=== PATIENT | female | born 1945 | race Two or more races ===

== ENCOUNTER 2018-11-29 12:18 | Inpatient (IN) | payer SELFPAY ==
[~2018-11-29] VITALS: Ht 154.9 cm; Wt 76.5 kg
[2018-11-29] MEDS ORDERED: ASPirin 81 mg TAB PO ONE (13:00)
[2018-11-29] MEDS ORDERED: cloNIDine HCL 0.1 MG TAB PO ONE (13:15)
[2018-11-29 14:06] LABS: Hemoglobin 12.9 g/dL (12.2-16.2); Lymphocytes # (auto) 1.7 uL; Monocytes # (auto) 0.3 uL; Nucleated Red Blood Cells % 0.1 %; White Blood Cell 5.9 10^3/uL (4.4-10.8)
[2018-11-29 14:08] LABS: Basophils # (auto) 0.1 uL; Basophils % (auto) 0.9 % (0.0-2.0); Eosinophils # (auto) 0.2 uL; Eosinophils % (auto) 2.7 % (0.0-7.0); Hematocrit 38.4 % (36.0-46.0); Mean Corpuscular Hemoglobin 26.4 pg (28.0-32.0); Mean Corpuscular Hgb Conc. 33.6 g/dL (32.0-36.0); Mean Corpuscular Volume 78.7 fL (80.0-100.0); Monocytes % (auto) 5.9 % (0.0-12.0); Neutrophils # (auto) 3.6 uL; Neutrophils % (auto) 61.5 % (37.0-80.0); Platelet Count (auto) 231 10^3/uL (140-450); Red Blood Cells 4.88 10^6/uL (4.0-5.20); Red Cell Distribution Width 16.1 % (11.8-14.3)
[2018-11-29 14:21] LABS: INR < 0.93 (0.9-1.15); Partial Thromboplastin Time 28.8 sec (23.64-32.05); Potassium 3.5 mmol/L (3.5-5.1)
[2018-11-29 14:25] LABS: Albumin 3.9 g/dL (3.4-5.0); BUN/Creatinine Ratio 15.3; Calcium 8.9 mg/dL (8.5-10.1); Magnesium 2.3 mg/dL (1.6-2.6)
[2018-11-29 14:40] LABS: Bilirubin, Total 0.3 mg/dL (0.2-1.0); Total Protein 7.8 g/dL (6.4-8.2)
[2018-11-29] MEDS ORDERED: DEXTROSE (50%) 50ML SYRG IV PRN (18:45)
[2018-11-29] MEDS ORDERED: NITROGLYCERIN 0.4 MG SL TAB SL PRN (18:45)
[2018-11-29] MEDS ORDERED: ALBUTEROL SULF 2.5 MG/0.5ML(0.5%) NEB SOLN NEB PRN (18:45)
[2018-11-29] MEDS ORDERED: PROMETHAZINE HCL 25 MG/ML 1ML IV PRN (18:45)
[2018-11-29] MEDS ORDERED: LACTULOSE 20Gm/30ML SOLN PO PRN (18:45)
[2018-11-29] MEDS ORDERED: MORPHINE SULF INJ 2 MG/ML SYRINGE 1ML IV PRN (18:45)
--- NOTE | 2018-11-29 20:37 | NUR ---
Respiratory note: ASSESSED PT FOR PRN MED NEB TX. PT IS CURRENTLY ON ROOM AIR: HR 81, RR 18, SPO2 94%. PT SHOWS NO S/S OF SOB OR RESPIRATORY DISTRESS. MED NEB TX NOT INDICATED AT THIS TIME. INFORMED PT IF SOB TO CONTACT RESPIRATORY FOR BREATHING TX. WILL CONTINUE TO MONITOR.
[2018-11-29] MEDS: SODIUM CHLORIDE 0.9% 1,000 ML IV SCH (20:48)
[2018-11-29] MEDS ORDERED: cloNIDine HCL 0.1 MG TAB ONE (21:59)
[2018-11-29] MEDS ORDERED: ATORVASTATIN 20 MG TAB PO SCH (22:00)
[2018-11-29] MEDS: ACCU-CHEK COMFORT CURVE STRIP VI SCH (22:00)
--- NOTE | 2018-11-29 22:05 | NUR ---
Telemetry admit from ER KAMLA ORNELAS admitted to Telemetry unit after SBAR received. Patient oriented to BRANDON COOMBS, RN primary RN, unit, room, bed, and unit policies regarding patient care and visiting hours. Patient now on continuous telemetry monitoring, tele box # 79 and telemetry reading on arrival to unit is Sinus rhythm at 75BPM, IV to right hand 20G running NS at 75ml/hr. Patient placed on bedside oxygen, weighed by bedscale and encouraged to call if they need something. All questions and concerns addressed, patient verbalized understanding. Note: Patient is alert and oriented,anguillan speaking only. akash Pringle aid in interpretation process. Patient has no distress noted, saturating at 94% on room air and denies pain. Blood sugar upon arrival is 158mg/dl covered with 2 units of regular insulin. Bed placed in lowest position, bed alarm turned on and call light within reach. Bedside commode provided per patient request.
[2018-11-29 22:54] VITALS: BP 162/99
[2018-11-29] MEDS: METOPROLOL TARTRATE 25 MG TAB PO SCH (23:54)
[2018-11-29] MEDS: InsuLIN REG 1unit/0.01ml Soln (100units/ml) SC SCH (23:56)
[2018-11-30] VITALS (10 sets, daily range): BP systolic 127–192; BP diastolic 60–101
[2018-11-30] MEDS ORDERED: NORPTMEDS (02:40)
[2018-11-30] MEDS: traMADol HCL 50 MG TAB PO PRN ×2 (04:20→17:04)
--- NOTE | 2018-11-30 04:20 | NUR ---
ROUNDS PATIENT COMPLAINS OF PAIN TO RIGHT BACK AND SHOULDER OF 5/10. GIVEN TRAMADOL. WILL MONITOR
--- NOTE | 2018-11-30 06:00 | NUR ---
EKG DONE ORDERED.
[2018-11-30 06:15] LABS: Cholesterol 213 mg/dL (< 200); HDL Cholesterol 35 mg/dL (40-59); Triglycerides 402 mg/dL (< 150)
[2018-11-30] MEDS: ACCU-CHEK COMFORT CURVE STRIP VI SCH ×4 (06:35→21:17)
[2018-11-30] MEDS: InsuLIN REG 1unit/0.01ml Soln (100units/ml) SC SCH ×4 (06:35→21:17)
--- NOTE | 2018-11-30 08:00 | NUR ---
Received pt resting sitting on the side of the bed, call light with in reach, no pain or distress noted or reported, will continue to monitor pt.
--- NOTE | 2018-11-30 08:37 | NUR ---
PT. ASSESSED FOR PRN. MN. TX., NO RESP. DISTRESS OR SOB NOTED. PT. IS SITTING UP AT BEDSIDE EATING BREAKFAST. PT. STATES HER BREATHING IS GOOD TODAY. BS. ARE CLEAR, HR 73,RR 18, SP02 94% ON RA. PRN. NO GIVEN AT THIS TIME, NOT INDICATED. PT. INSTRUCTED TO CALL IF NEEDED.
[2018-11-30] MEDS: SODIUM CHLORIDE 0.9% 1,000 ML IV SCH ×2 (09:09→21:15)
[2018-11-30] MEDS ORDERED: ENALAPRIL MALEATE 10 MG TAB PO SCH (10:00)
[2018-11-30] MEDS: PANTOPRAZOLE 40 MG TAB PO SCH (10:24)
[2018-11-30] MEDS: ASPirin 81 mg TAB PO SCH (10:25)
[2018-11-30] MEDS: METOPROLOL TARTRATE 25 MG TAB PO SCH ×2 (10:25→21:14)
[2018-11-30] MEDS: ENOXAPARIN SOD 40 MG/0.4 ML SYRINGE SC SCH (10:27)
[2018-11-30] MEDS: NITROGLYCERIN 0.2MG/HR TOPICAL PATCH TD SCH (10:27)
--- NOTE | 2018-11-30 16:50 | NUR ---
Dr. Thompson at bed side to see pt, doctor inform of pt having anxiety and pt requesting for anxiety medication.
[2018-11-30] MEDS: LORazepam 0.5 MG TAB PO PRN (17:23)
--- NOTE | 2018-11-30 19:00 | NUR ---
PT ASSESSED FOR PRN BREATHING TX. TX NOT INDICATED @ THIS TIME. NO SOB OR DISTRESS NOTED. SPO2 94% ON ROOM AIR, HR 68, RR 18, DIMINISHED BS. PT AWARE TO PAGE FOR RT IF TX IS NEEDED.
--- NOTE | 2018-11-30 19:10 | NUR ---
Opening Shift Note Received report from Stefania Assumed care of patient, awake and alert. No S/S of distress/SOB or pain. Family at bedside. Instructed on POC and to call for assist PRN, will continue to monitor for changes Q1hr and PRN. Bed placed in lowest position, bed alarm turned on, and call light within reach.
[2018-11-30] MEDS: ACETAMINOPHEN 500 MG TAB PO PRN (20:24)
--- NOTE | 2018-11-30 20:24 | NUR ---
Tylenol given for Headache 08/04. Will monitor.
[2018-11-30 20:52] LABS: Alcohol, Urine < 3.0 mg/dL (0-5); Amphetamine Screen, Urine NEGATIVE (NEGATIVE); Barbiturate Scree,Urine NEGATIVE (NEGATIVE); Benzodiazephine Screen, Urine NEGATIVE (NEGATIVE); Cannabinoid Screen, Urine NEGATIVE (NEGATIVE); Cocaine Screen, Urine NEGATIVE (NEGATIVE); Opiate Scree,Urine NEGATIVE (NEGATIVE); Phencyclidine Screen, Urine NEGATIVE (NEGATIVE)
[2018-11-30] MEDS: ATORVASTATIN 20 MG TAB PO SCH (21:13)
--- NOTE | 2018-11-30 22:00 | NUR ---
PT BP is 192/89 Metoprolol given as ordered. PT is resting in bed no distress noted, PT states Headache is gone. Will monitor.
[2018-11-30] MEDS: cloNIDine HCL 0.1 MG TAB PO PRN (23:27)
--- NOTE | 2018-11-30 23:27 | NUR ---
BP Check is 167/72, PT is resting in bed with eyes closed no distress noted and PT denies pain. Catapres given as ordered will monitor
[2018-12-01] MEDS: hydrALAZINE HCL 20 MG/ML VL IV PRN (02:39)
--- NOTE | 2018-12-01 02:39 | NUR ---
Hydralazine given for BP of 179/97. PT is resting in bed awake and alert, distress noted and denies pain/headache. Will monitor.
--- NOTE | 2018-12-01 03:00 | NUR ---
IV insertion IV access obtained, via clean sterile technique by inserting 20 gauge catheter at the left wrist after first attempt. IV secured properly. No trauma to site. Patient tolerated procedure well.
--- NOTE | 2018-12-01 03:15 | NUR ---
PT seemed anxious regarding additional IV insertion and states "you took a lot of blood from my vein". Educated PT that additional IV was placed for stress test and no blood was drawn. PT then started to complain of pain in Head and back of neck and looking more anxious looking and going through her purse.
[2018-12-01] MEDS: LORazepam 0.5 MG TAB PO PRN (03:44)
[2018-12-01] MEDS: traMADol HCL 50 MG TAB PO PRN ×2 (03:44→20:06)
--- NOTE | 2018-12-01 03:44 | NUR ---
Tramadol given for pain and Ativan given for anxiety as ordered. PT adjusted up in bed, repositioned pillows and covered PT with blankets. Instructed patient to get some rest and relax and to call if she needs something. Call light within reach, bed alarm on and bed in lowest position.
--- NOTE | 2018-12-01 04:53 | NUR ---
Rounds: PT is resting in eyes closed no distress noted will continue to monitor.
[2018-12-01] MEDS: ACCU-CHEK COMFORT CURVE STRIP VI SCH ×4 (07:00→21:22)
[2018-12-01] MEDS: InsuLIN REG 1unit/0.01ml Soln (100units/ml) SC SCH ×4 (07:00→21:22)
--- NOTE | 2018-12-01 07:15 | NUR ---
Opening Shift Note Assumed care of patient, awake and alert. No S/S of distress/SOB or pain. Instructed on POC and to call for assist PRN, patient call light within reach and bed in lowest position. Will continue to monitor for changes Q1hr and PRN.
--- NOTE | 2018-12-01 07:34 | NUR ---
PATIENT'S BLOOD PRESSURE IS 156/90, PULSE IS 79
[2018-12-01 08:00] VITALS: BP 158/96
[2018-12-01] MEDS ORDERED: ADENOSINE 69 MG in GIVE UN-DILUTED 0 ML IV STA (08:57)
[2018-12-01 09:00] VITALS: BP 187/90
[2018-12-01] MEDS ORDERED: ENALAPRIL MALEATE 10 MG TAB PO SCH (10:00)
[2018-12-01] MEDS: SODIUM CHLORIDE 0.9% 1,000 ML IV SCH ×3 (10:35→23:55)
--- NOTE | 2018-12-01 10:45 | NUR ---
Patient returned to room from procedure
[2018-12-01] MEDS: METOPROLOL TARTRATE 25 MG TAB PO SCH ×2 (11:23→21:24)
[2018-12-01] MEDS: ASPirin 81 mg TAB PO SCH (11:23)
[2018-12-01] MEDS: PANTOPRAZOLE 40 MG TAB PO SCH (11:24)
[2018-12-01] MEDS: ENOXAPARIN SOD 40 MG/0.4 ML SYRINGE SC SCH (11:26)
--- NOTE | 2018-12-01 11:43 | NUR ---
Dr. Seth bedside with patient and patients family member. awaiting test results.
[2018-12-01] MEDS: NITROGLYCERIN 0.2MG/HR TOPICAL PATCH TD SCH (11:51)
[2018-12-01 13:00] VITALS: BP 158/96
--- NOTE | 2018-12-01 14:24 | NUR ---
Respiratory note: PT ASSESSED FOR MED NEB TX, NO SOB NOTED. POX 96% ON ROOM AIR HR 70, RR13 BS CLEAR THROUGH OUT. TX NOT INDICATED AT THIS TIME.
--- NOTE | 2018-12-01 16:10 | NUR ---
Called and spoke to Sarahi, cardio [employer] as per Dr. Seth's request to inquire on the stress test results, as per Sarahi she will talk a cancer program consultant to read the stress test and will call back with results.
[2018-12-01 16:43] VITALS: BP 159/81
--- NOTE | 2018-12-01 17:25 | NUR ---
Received a call back from Sarahi cardio [employer] to report that the stress test read apical lateral changes and ischemic changes and that pt will need a heart cath for Tuesday. Will inform results to Dr. Seth.
--- NOTE | 2018-12-01 19:29 | NUR ---
Respiratory note: ASSESSED PT FOR PRN MED NEB TX. PT IS CURRENTLY ON ROOM AIR: HR 68, RR 16, SPO2 96%. PT SHOWS NO S/S OF SOB OR RESPIRATORY DISTRESS. MED NEB TX NOT INDICATED AT THIS TIME. WILL CONTINUE TO MONITOR.
--- NOTE | 2018-12-01 19:30 | NUR ---
Opening Shift Note Received report from stoney Aguiar RN. Assumed care of patient, awake and alert. Family at bedside. No S/S of distress/SOB, but complains of pain to head and back of neck 5/10. Will give pain medication as ordered. Instructed on POC and to call for assist PRN, will continue to monitor for changes Q1hr and PRN.
[2018-12-01 20:00] VITALS: BP 193/93
--- NOTE | 2018-12-01 21:00 | NUR ---
URINE SPECIMEN SENT TO LAB.
[2018-12-01] MEDS: ATORVASTATIN 20 MG TAB PO SCH (21:24)
[2018-12-01 21:42] VITALS: BP 193/93
[2018-12-01 21:46] LABS: Urine WBC None Seen /hpf (0 - 5)
[2018-12-01 21:56] LABS: Urine Bacteria NONE SEEN /hpf (None Seen); Urine Blood 1+ /uL (Negative)
[2018-12-01] MEDS: cloNIDine HCL 0.1 MG TAB PO PRN (22:44)
[2018-12-02] MEDS: traMADol HCL 50 MG TAB PO PRN ×2 (04:24→21:01)
[2018-12-02] MEDS: LORazepam 0.5 MG TAB PO PRN (04:25)
[2018-12-02 04:31] VITALS: BP 168/89
[2018-12-02 05:47] LABS: Basophils # (auto) 0 uL; Eosinophils # (auto) 0.1 uL; Hemoglobin 12.3 g/dL (12.2-16.2); Monocytes # (auto) 0.4 uL; Red Cell Distribution Width 15.7 % (11.8-14.3); White Blood Cell 7.8 10^3/uL (4.4-10.8)
[2018-12-02 05:51] LABS: Basophils % (auto) 0.4 % (0.0-2.0); Eosinophils % (auto) 1.8 % (0.0-7.0); Hematocrit 36.1 % (36.0-46.0); Lymphocytes % (auto) 25.9 % (10.0-50.0); Mean Corpuscular Volume 79.2 fL (80.0-100.0); Monocytes % (auto) 5.6 % (0.0-12.0); Neutrophils # (auto) 5.2 uL; Neutrophils % (auto) 66.3 % (37.0-80.0); Platelet Count (auto) 214 10^3/uL (140-450); Red Blood Cells 4.56 10^6/uL (4.0-5.20)
[2018-12-02 06:06] LABS: Potassium 3.5 mmol/L (3.5-5.1)
[2018-12-02 06:11] LABS: BUN/Creatinine Ratio 19.1; Calcium 8.8 mg/dL (8.5-10.1); Magnesium 2.4 mg/dL (1.6-2.6)
[2018-12-02] MEDS: ACCU-CHEK COMFORT CURVE STRIP VI SCH ×4 (06:15→21:03)
[2018-12-02] MEDS: InsuLIN REG 1unit/0.01ml Soln (100units/ml) SC SCH ×4 (06:15→21:03)
[2018-12-02 06:18] VITALS: BP 135/72
[2018-12-02] MEDS: SODIUM CHLORIDE 0.9% 1,000 ML IV SCH ×3 (06:55→19:13)
[2018-12-02] MEDS ORDERED: POTASSIUM CHL 20 Meq TABLET PO ONE (08:00)
--- NOTE | 2018-12-02 08:00 | NUR ---
Opening Shift Note Assumed care of patient, awake and alert. No S/S of distress/SOB. Pt denies chest pain. Instructed on POC and to call for assist PRN, will continue to monitor for changes Q1hr and PRN.
[2018-12-02 09:00] VITALS: BP 138/76
--- NOTE | 2018-12-02 09:10 | NUR ---
PT ASSESSED FOR PRN HHN TX. PT IS ON ROOM AIR, SPO2 97%, HR 66, RR 20. NO S/S OF RESPIRATORY DISTRESS. PT AWARE TO HAVE RT PAGED IF TX NEEDED. WILL CONTINUE TO MONITOR.
[2018-12-02] MEDS: ASPirin 81 mg TAB PO SCH (10:04)
[2018-12-02] MEDS: PANTOPRAZOLE 40 MG TAB PO SCH (10:04)
[2018-12-02] MEDS: ENALAPRIL MALEATE 10 MG TAB PO SCH (10:05)
[2018-12-02] MEDS: METOPROLOL TARTRATE 25 MG TAB PO SCH ×2 (10:05→21:00)
[2018-12-02] MEDS: ENOXAPARIN SOD 40 MG/0.4 ML SYRINGE SC SCH (10:06)
[2018-12-02] MEDS: NITROGLYCERIN 0.2MG/HR TOPICAL PATCH TD SCH (10:06)
[2018-12-02 13:00] VITALS: BP 144/86
--- NOTE | 2018-12-02 15:33 | NUR ---
HEART CATH/CONSENTS PATIENT DID NOT SIGN CONSENTS TODAY BECAUSE SHE WANTS TO WAIT FOR HER DAUGHTER WHO WILL BE HERE TOMORROW. PATIENT IS UNCLEAR ABOUT THE PROCEDURE AND IS CONCERNED THAT IT IS A MAJOR SURGERY AND SHE COULD POSSIBLY , EVEN THOUGH IT WAS EXPLAINED THAT IT IS A FAIRLY QUICK PROCEDURE. FILLED OUT SURGICAL CHECKLIST.
[2018-12-02 16:55] VITALS: BP 164/91
--- NOTE | 2018-12-02 19:35 | NUR ---
RT NOTE PRN ASSESSMENT DONE. PRN TX NOT INDICATED AT THIS TIME. PT ON RA NO RESP DISTRESS NOTED.
--- NOTE | 2018-12-02 20:35 | NUR ---
Opening Shift Note Assumed care of patient, awake and alert. No S/S of distress/SOB or pain. Instructed on POC and to call for assist PRN, will continue to monitor for changes Q1hr and PRN.
[2018-12-02] MEDS: ATORVASTATIN 20 MG TAB PO SCH (21:00)
[2018-12-02] MEDS: TEMAZEPAM 15 MG CAP PO PRN (21:01)
[2018-12-02] MEDS: hydrALAZINE HCL 20 MG/ML VL IV PRN (21:01)
[2018-12-02 22:00] VITALS: BP 193/101
[2018-12-03] VITALS (7 sets, daily range): BP systolic 123–176; BP diastolic 54–101
[2018-12-03] MEDS: SODIUM CHLORIDE 0.9% 1,000 ML IV SCH ×4 (02:35→19:37)
[2018-12-03] MEDS: InsuLIN REG 1unit/0.01ml Soln (100units/ml) SC SCH ×4 (06:10→21:11)
[2018-12-03] MEDS: ACCU-CHEK COMFORT CURVE STRIP VI SCH ×4 (06:10→21:08)
[2018-12-03] MEDS: cloNIDine HCL 0.1 MG TAB PO PRN ×3 (06:35→23:40)
[2018-12-03] MEDS: traMADol HCL 50 MG TAB PO PRN (06:35)
[2018-12-03] MEDS: PANTOPRAZOLE 40 MG TAB PO SCH (06:57)
--- NOTE | 2018-12-03 07:30 | NUR ---
Opening Shift Note RECEIVED REPORT FROM NOC RN. Assumed care of patient, awake and alert. PATIENT ON OXYGEN AT 2 LPM VIA NASAL CANNULA WITH no S/S of distress/SOB or pain. BED IN LOWEST, LOCKED POSITION WITH SIDERAILS UP x2. Instructed on POC and to call for assist PRN, will continue to monitor for changes Q1hr and PRN.
[2018-12-03] MEDS: ENOXAPARIN SOD 40 MG/0.4 ML SYRINGE SC SCH (09:53)
--- NOTE | 2018-12-03 09:53 | NUR ---
Respiratory note: ASSESSED PT FOR PRN MEDNEB TX. HR 70, RR 14, POX 97% ON ROOM AIR. BREATH SOUNDS CLEAR THROUGHOUT. PT SITTING ON SIDE OF BED, NO S/S OF RESPIRATORY DISTRESS NOTED. MEDNEB TX NOT INDICATED AT THIS TIME. WROTE RT NAME AND PAGER NUMBER ON WHITEBOARD. RN AT BEDSIDE.
[2018-12-03] MEDS: NITROGLYCERIN 0.2MG/HR TOPICAL PATCH TD SCH (09:54)
[2018-12-03] MEDS: ASPirin 81 mg TAB PO SCH (09:55)
[2018-12-03] MEDS: METOPROLOL TARTRATE 25 MG TAB PO SCH ×2 (09:55→21:07)
[2018-12-03] MEDS: ENALAPRIL MALEATE 10 MG TAB PO SCH (09:55)
--- NOTE | 2018-12-03 11:53 | NUR ---
Nutrition Assessment Notes please see attached link for complete assessment Est. Needs ABW 61 [id number] kcal (23-25 kcal/kgBW), 61-67 gms pro (1.0-1.1 gms/kgBW). Will continue to monitor pertinent labs and reassess nutrient need prn Addendum: 12/03/18 at [address] Zuñ[address] RD Amended: Links added.
--- NOTE | 2018-12-03 20:45 | NUR ---
RT NOTE: PT ASSESSED FOR PRN BREATHING TX, TX NOT INDICTED @ THIS TIME. SPO2 95% ON ROOM AIR, HR 62, RR 20, CLEAR BREATH SOUNDS. PT AWARE OF PRN TX AND WILL PAGE FOR RT IF NEEDED. NO SOB OR DISTRESS NOTED.
[2018-12-03] MEDS: TEMAZEPAM 15 MG CAP PO PRN (21:07)
[2018-12-03] MEDS: ATORVASTATIN 20 MG TAB PO SCH (21:07)
[2018-12-04] MEDS: SODIUM CHLORIDE 0.9% 1,000 ML IV SCH ×2 (00:41→00:52)
[2018-12-04] MEDS: traMADol HCL 50 MG TAB PO PRN (03:57)
[2018-12-04 05:00] VITALS: BP 137/66
[2018-12-04 05:37] LABS: Basophils # (auto) 0 uL; Basophils % (auto) 0.4 % (0.0-2.0); Eosinophils # (auto) 0.1 uL; Neutrophils # (auto) 4.7 uL; Nucleated Red Blood Cells % 0.1 %; White Blood Cell 6.8 10^3/uL (4.4-10.8)
[2018-12-04 05:39] LABS: Eosinophils % (auto) 2.1 % (0.0-7.0); Hematocrit 33.7 % (36.0-46.0); Hemoglobin 11.5 g/dL (12.2-16.2); Lymphocytes # (auto) 1.6 uL; Lymphocytes % (auto) 22.8 % (10.0-50.0); Mean Corpuscular Hgb Conc. 33.9 g/dL (32.0-36.0); Mean Corpuscular Volume 79.4 fL (80.0-100.0); Monocytes # (auto) 0.4 uL; Monocytes % (auto) 6.3 % (0.0-12.0); Neutrophils % (auto) 68.4 % (37.0-80.0); Platelet Count (auto) 192 10^3/uL (140-450); Red Blood Cells 4.25 10^6/uL (4.0-5.20); Red Cell Distribution Width 15.7 % (11.8-14.3)
[2018-12-04 05:58] LABS: INR 0.95 (0.9-1.15); Partial Thromboplastin Time 32.1 sec (23.64-32.05)
[2018-12-04] MEDS: ACCU-CHEK COMFORT CURVE STRIP VI SCH ×3 (06:04→17:33)
[2018-12-04] MEDS: InsuLIN REG 1unit/0.01ml Soln (100units/ml) SC SCH ×3 (06:04→17:33)
[2018-12-04 06:15] LABS: BUN/Creatinine Ratio 29.5; Calcium 8.4 mg/dL (8.5-10.1); Potassium 4.3 mmol/L (3.5-5.1)
[2018-12-04] MEDS: NITROGLYCERIN 0.2MG/HR TOPICAL PATCH TD SCH (09:10)
[2018-12-04] MEDS: ENALAPRIL MALEATE 10 MG TAB PO SCH (09:11)
[2018-12-04] MEDS: METOPROLOL TARTRATE 25 MG TAB PO SCH (09:11)
[2018-12-04] MEDS: PANTOPRAZOLE 40 MG TAB PO SCH (09:12)
[2018-12-04] MEDS: ENOXAPARIN SOD 40 MG/0.4 ML SYRINGE SC SCH (09:12)
[2018-12-04] MEDS: ASPirin 81 mg TAB PO SCH (09:12)
--- NOTE | 2018-12-04 09:28 | NUR ---
0928: MITCHELL BOLAÑOS AT BEDSIDE. OBTAINING CONSENT FOR [facility]. FAMILY AT BEDSIDE, QUESTIONS AND CONCERNS ADDRESSED. CONSENT WITNESSED. 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 AWAKE, ALERT, ORIENTEDx4. NO DISTRESS NOTED.
[2018-12-04 09:49] VITALS: BP 176/79
[2018-12-04] MEDS ORDERED: LIDOCAINE 2%HCL (LOCAL ANESTH.) INJ 20ML MDV ONE (11:05)
[2018-12-04] MEDS ORDERED: IOHEXOL 350 MG/ML 100ML IJ ONE (11:05)
[2018-12-04] MEDS ORDERED: ANGIOMAX 250 MG VIAL IV ONE (11:17)
[2018-12-04] MEDS ORDERED: SODIUM CHL 0.9% 0 ML ONE (11:18)
[2018-12-04] MEDS ORDERED: IODIXANOL 320MG/ML 100ML BTL IV ONE (11:18)
[2018-12-04] MEDS ORDERED: MIDAZOLAM HCL 1MG/1ML-2 ML VIAL ONE (11:18)
[2018-12-04] MEDS ORDERED: fentaNYL CITRATE 100 MCG/2 ML VL ONE (11:18)
[2018-12-04] MEDS ORDERED: hydrALAZINE HCL 20 MG/ML VL ONE (11:53)
--- NOTE | 2018-12-04 12:00 | NUR ---
assessment Patient out of the room for procedure. Will come back for assessment. Addendum: 12/05/18 at 1626 by Rebecca BYRD Amended: Links added.
--- NOTE | 2018-12-04 13:00 | NUR ---
PT BACK FROM PATIENT SITTER, AWAKE, ALERT, ORIENTEDx4. DENIES ANY PAIN, EFFORTLESS BREATHING ON 2LNC. RIGHT GROIN LHC INSERTION SITE DRESSING CDI, SOFT TO PALPATION. BED LOCKED AND IN LOWEST POSITION, CALL LIGHT WITHIN REACH. WILL CONTINUE TO MONITOR.
[2018-12-04 14:00] VITALS: BP 156/81
[2018-12-04 15:00] VITALS: BP 143/73
--- NOTE | 2018-12-04 15:28 | NUR ---
RT NOTE: NO INDICATION FOR TX AT HIS TIME. NO SIGNS OF RESPIRATORY DISTRESS NOTED. LUNG SOUNDS CLEAR T/O. ON RA SPO2 96 HR 68 RR 16. PT AWARE TO CALL FOR RESPIRATORY SHOULD NEED FOR TX ARISE.
[2018-12-04 16:00] VITALS: BP 141/84
[2018-12-04 16:57] VITALS: BP 141/84
[2018-12-04] MEDS: ACETAMINOPHEN 500 MG TAB PO PRN (17:12)
--- NOTE | 2018-12-04 18:49 | NUR ---
PER MD REID PT TO BE DISCHARGED. DISCHARGE INSTRUCTIONS GIVEN TO PT AND DAUGHTER. BOTH VERBALIZED UNDERSTANDING FOR CONTINUATION OF CARE WITH A PRIMARY CARE PROVIDER. RESOURCE INFORMATION PROVIDED IN DISCHARGE PACKET. EDUCATIONAL MATERIAL PROVIDED, ALL QUESTIONS AND CONCERNS ADDRESSED. TELE BOX REMOVED AND RETURNED TO TELE DEPT. IV CATHETER DC'D, CATHETER INTACT, NO PHLEBITIS. PT SAFELY ESCORTED OUT OF UNIT. NO DISTRESS AT TIME OF DISCHARGE.
--- NOTE | 2018-12-05 09:26 | NUR ---
assessment Patient discharged prior to being assessed. Addendum: 12/05/18 at 1626 by Rebecca BYRD Amended: Links added.
== END 2018-12-04 18:55 | disposition home or self-care (01) | DRG 282 ==
LOC: ER 12:18 → TELE 12:19 → TELE-WESTW 22:05
PROVIDERS: ADMIT Internal Medicine; ATTEND Internal Medicine
PROC: 4A023N7 Measurement of Cardiac Sampling and Pressure, Left Heart, Percutaneous Approach (ICD-10-PCS; principal; 2018-12-04)
PROC: B2111ZZ Fluoroscopy of Multiple Coronary Arteries using Low Osmolar Contrast (ICD-10-PCS; 2018-12-04)
PROC: B2151ZZ Fluoroscopy of Left Heart using Low Osmolar Contrast (ICD-10-PCS; 2018-12-04)
DX: I21.4 Non-ST elevation (NSTEMI) myocardial infarction (principal); E78.00 Pure hypercholesterolemia, unspecified; I10 Essential (primary) hypertension; E66.9 Obesity, unspecified; I70.0 Atherosclerosis of aorta; I16.0 Hypertensive urgency; R91.1 Solitary pulmonary nodule; E78.5 Hyperlipidemia, unspecified; E11.65 Type 2 diabetes mellitus with hyperglycemia; Z82.49 Family history of ischemic heart disease and other diseases of the circulatory system; Z91.19 Patient's noncompliance with other medical treatment and regimen; Z83.3 Family history of diabetes mellitus; Z79.899 Other long term (current) drug therapy; Z68.31 Body mass index [BMI] 31.0-31.9, adult; Z87.891 Personal history of nicotine dependence
CPT/HCPCS: 36415; 71046; 71250; 78452; 80048; 80053; 80061; 80307; 81001; 82550; 82962; 83036; 83735; 83880; 84484; 85025; 85379; 85610; 85652; 85730; 86141; 86850; 86900; 86901; 93005; 93017; 93306; 96365; 96375; G0378; J0153; J1815; J2250; Q9967

== ENCOUNTER 2023-10-27 21:32 | Emergency (ER) | payer MEDICAID ==
[~2023-10-27] VITALS: Ht 160 cm; Wt 72.0 kg
[~2023-10-27 21:32] MED LIST: NORPTMEDS
[2023-10-27 22:18] LABS: Basophils # (auto) 0 10 ^3/uL (0-0.2); Basophils % (auto) 0.5 % (0.0-2.0); Eosinophils # (auto) 0.2 10 ^3/uL (0-0.8); Eosinophils % (auto) 2.7 % (0.0-7.0); Hematocrit 34.3 % (36.0-46.0); Hemoglobin 11.7 g/dL (12.2-16.2); Lymphocytes # (auto) 1.8 10 ^3/uL (0.4-5.4); Lymphocytes % (auto) 26.2 % (10.0-50.0); Mean Corpuscular Hemoglobin 27.5 pg (28.0-32.0); Mean Corpuscular Hgb Conc. 34.2 g/dL (32.0-36.0); Mean Corpuscular Volume 80.5 fL (80.0-100.0); Monocytes # (auto) 0.4 10 ^3/uL (0-1.3); Monocytes % (auto) 5.8 % (0.0-12.0); Neutrophils # (auto) 4.3 10 ^3/uL (1.6-8.6); Neutrophils % (auto) 64.8 % (37.0-80.0); Nucleated Red Blood Cells % 0.1 %; Red Blood Cells 4.26 10^6/uL (4.0-5.20); Red Cell Distribution Width 15.5 % (11.8-14.3); White Blood Cell 6.7 10^3/uL (4.4-10.8)
[2023-10-27 22:26] LABS: Chloride 105 mmol/L (98-107); Potassium 3.8 mmol/L (3.5-5.1); Sodium 138 mmol/L (136-145)
[2023-10-27 22:27] LABS: Anion Gap 9 (5-15); Carbon Dioxide 24 mmol/L (20-30)
[2023-10-27 22:28] LABS: Calcium 9.4 mg/dL (8.7-10.4)
[2023-10-27 22:32] LABS: Glucose 208 mg/dL (74-106)
[2023-10-27 22:33] LABS: BUN/Creatinine Ratio 11.5 (10.0-20.0); Blood Urea Nitrogen 14 mg/dL (9-23)
[2023-10-27 22:43] LABS: Rapid Influenza A Negative (Negative); Rapid Influenza B Negative (Negative)
[2023-10-27 22:44] LABS: COVID19 ANTIGEN SOFIA FIA NEGATIVE (NEGATIVE)
[2023-10-28] MEDS: ALBUTEROL SULF 2.5 MG/0.5ML(0.5%) NEB SOLN NEB ONE (00:35)
[2023-10-28] MEDS: AZITHROMYCIN 250 MG TAB PO ONE (00:37)
[2023-10-28 00:45] VITALS: BP 198/99; PULSE 95; RESP 17; TEMP 98.7; O2SAT 96
[2023-10-28] MEDS ORDERED: AZIT-185 PO (01:42)
[2023-10-28] MEDS ORDERED: BENZ200C64 PO (01:42)
== END 2023-10-28 01:50 | disposition home or self-care (01) ==
LOC: ER 21:32
DX: J40 Bronchitis, not specified as acute or chronic (principal); R05.9 Cough, unspecified; I10 Essential (primary) hypertension; E78.5 Hyperlipidemia, unspecified; E11.9 Type 2 diabetes mellitus without complications; Z86.73 Personal history of transient ischemic attack (TIA), and cerebral infarction without residual deficits; Z20.822 Contact with and (suspected) exposure to COVID-19
CPT/HCPCS: 36415; 71046; 80048; 84484; 85025; 87426; 87804; 94640